=== PATIENT | female | born 1960 | race Two or more races ===

== ENCOUNTER → 2023-12-01 | Outpatient (CLI) | payer MEDICAID, MEDICARE ==
[~2023-12-01] MED LIST: ATOR10TA PO; FERR325T39 PO; FOLI1TAB27 PO; HYDR-4383 PO
== END | disposition home or self-care (01) ==
LOC: RAD 12:12
PROVIDERS: ATTEND Nurse Practitioner Family
DX: J18.9 Pneumonia, unspecified organism (principal)
CPT/HCPCS: 71046